=== PATIENT | female | born 1995 | race Hispanic/Latino ===

== ENCOUNTER 2024-01-22 09:42 | Emergency (ER) | payer SELFPAY ==
[2024-01-22 10:30] LABS: #Basophils 0.07 10x3/uL (0.0-0.2); #Monocytes 0.23 10x3/uL (0.0-1.1); #Neutrophils 12.94 10x3/uL (1.5-8.4); %Basophils 0.5 % (0.0-2.0); %Lymphocytes 6.9 % (18.0-47.0); %Monocytes 1.6 % (0.0-10.0); %Neutrophils 90.5 % (40.0-75.0); Hematocrit 46.3 % (34.9-44.5); Hemoglobin 15.2 g/dL (12.0-15.5); Mean Corpuscular HGB CONC 32.8 g/dL (32.0-36.0); Mean Corpuscular Hemoglobin 27.5 pg (27.0-33.0); Mean Corpuscular Volume 83.9 fL (81.6-98.3); Platelet Count 381 10x3/uL (150-450); RBC Distribution Width 13.1 % (11.5-14.5); Red Blood Cell (RBC) Count 5.52 10x6/uL (3.90-5.03); White Blood Cell (WBC) Count 14.3 10x3/uL (3.5-10.5)
[2024-01-22] MEDS ORDERED: Metoclopramide HCl 10 MG (2 mL) VIAL ONE (10:37)
[2024-01-22 10:48] LABS: ALT (SGPT) 18 U/L (8-55); AST (SGOT) 11 U/L (5-34); Albumin 4.5 g/dL (3.5-5.0); Alkaline Phosphatase 109 U/L (40-110); Anion Gap 23 mmol/L (10-20); BUN (Urea Nitrogen) 13 mg/dL (7.0-18.7); Bilirubin, Total 0.3 mg/dL (0.2-1.2); Calc. Creatinine Clearance 0 mL/min (70-130); Calcium 10.1 mg/dL (7.8-10.44); Carbon Dioxide 20 mmol/L (22-29); Chloride 101 mmol/L (98-107); Estimated GFR 94; Globulin 3.6 g/dL (2.4-3.5); Potassium 4.4 mmol/L (3.5-5.1); Protein, Total 8.1 g/dL (6.0-8.3); Sodium 140 mmol/L (136-145)
[2024-01-22 10:59] LABS: Critical Call Chemistry NUR.DG3@1057; Glucose 431 mg/dL (70-105)
[2024-01-22 11:00] LABS: BHCG - Serum Negative (NEGATIVE); Pregs Control Background? CLEAR/WHITE (CLR/WHITE); Pregs Control Bar Appear? YES (CONTROL BAR)
[2024-01-22 11:05] LABS: Lipase 41 U/L (8-78); Magnesium 2.2 mg/dL (1.6-2.6)
[2024-01-22] MEDS ORDERED: Erythromycin 250 MG in Sodium Chloride 0.9% 250 ML 250 ML IVPB SCH (11:15)
== END 2024-01-22 16:02 | disposition home or self-care (01) ==
LOC: CSHERS 09:42
DX: E86.0 Dehydration (principal); K31.84 Gastroparesis; E11.65 Type 2 diabetes mellitus with hyperglycemia; R11.2 Nausea with vomiting, unspecified
CPT/HCPCS: 36416; 80053; 82010; 83690; 83735; 84703; 85025; 96361; 96365; 96375; J1364; J2765; J7050

== ENCOUNTER 2024-01-24 09:38 | Emergency (ER) | payer SELFPAY ==
[2024-01-24] MEDS ORDERED: Ondansetron PF 4 MG/2 ML Vial ONE (09:44)
[2024-01-24] MEDS ORDERED: Metoclopramide HCl 10 MG (2 mL) VIAL ONE ×2 (10:00→12:01)
[2024-01-24 10:13] LABS: #Basophils 0.03 10x3/uL (0.0-0.2); #Eosinophils 0.02 10x3/uL (0.0-0.5); #Monocytes 0.43 10x3/uL (0.0-1.1); #Neutrophils 7.16 10x3/uL (1.5-8.4); %Basophils 0.3 % (0.0-2.0); %Eosinophils 0.2 % (0.0-6.0); %Lymphocytes 17.6 % (18.0-47.0); %Monocytes 4.6 % (0.0-10.0); %Neutrophils 76.8 % (40.0-75.0); Hematocrit 41.8 % (34.9-44.5); Hemoglobin 13.9 g/dL (12.0-15.5); Mean Corpuscular HGB CONC 33.3 g/dL (32.0-36.0); Mean Corpuscular Hemoglobin 27.5 pg (27.0-33.0); Mean Corpuscular Volume 82.6 fL (81.6-98.3); Mean Platelet Volume 9.6 fL (7.4-10.4); Platelet Count 335 10x3/uL (150-450); RBC Distribution Width 12.9 % (11.5-14.5); Red Blood Cell (RBC) Count 5.06 10x6/uL (3.90-5.03); White Blood Cell (WBC) Count 9.3 10x3/uL (3.5-10.5)
[2024-01-24 10:26] LABS: ALT (SGPT) 11 U/L (8-55); AST (SGOT) 11 U/L (5-34); Albumin 3.9 g/dL (3.5-5.0); Alkaline Phosphatase 87 U/L (40-110); Anion Gap 17 mmol/L (10-20); BUN (Urea Nitrogen) 10 mg/dL (7.0-18.7); Bilirubin, Total 0.4 mg/dL (0.2-1.2); Calc. Creatinine Clearance 0 mL/min (70-130); Calcium 9.6 mg/dL (7.8-10.44); Carbon Dioxide 22 mmol/L (22-29); Chloride 101 mmol/L (98-107); Estimated GFR 117; Globulin 3.5 g/dL (2.4-3.5); Glucose 338 mg/dL (70-105); Lipase 32 U/L (8-78); Potassium 3.7 mmol/L (3.5-5.1); Protein, Total 7.4 g/dL (6.0-8.3); Sodium 136 mmol/L (136-145)
[2024-01-24] MEDS ORDERED: Haloperidol Lactate 5 MG/ML VIAL ONE (10:39)
[2024-01-24] MEDS ORDERED: Insulin Regular, Human 100 UNIT/ML 10 ML VIAL ONE (17:39)
[2024-01-24] MEDS ORDERED: Lisinopril 5 MG TAB PO SCH (18:15)
== END 2024-01-24 19:31 | disposition home or self-care (01) ==
LOC: CSHERS 09:38
DX: E11.43 Type 2 diabetes mellitus with diabetic autonomic (poly)neuropathy (principal); S05.00XA Injury of conjunctiva and corneal abrasion without foreign body, unspecified eye, initial encounter; I10 Essential (primary) hypertension; E11.10 Type 2 diabetes mellitus with ketoacidosis without coma; X58.XXXA Exposure to other specified factors, initial encounter
CPT/HCPCS: 36416; 80053; 83690; 85025; 96361; 96374; 96375; J1630; J1815; J2405; J2765

== ENCOUNTER 2024-01-30 08:17 | Emergency (ER) | payer SELFPAY ==
[2024-01-30] MEDS ORDERED: Haloperidol Lactate 5 MG/ML VIAL ONE (08:40)
[2024-01-30] MEDS ORDERED: Ondansetron PF 4 MG/2 ML Vial ONE (08:40)
[2024-01-30] MEDS ORDERED: diphenhydrAMINE 50 MG/ML VIAL ONE (08:40)
[2024-01-30 09:14] LABS: Actual Bicarbonate (HCO3v) 24.5 mEq/L (22-28); Analyzer IN Cardio CS ER; Base Excess 0.1 mEq/L (-2 - +2); Calcium, Ionized (venous) 1.17 mmol/L (1.16-1.32); Chloride (VBG) 101 mmol/L (98-106); Hematocrit-VBG 48 % (36.0-47.0); Hemoglobin (Hb) 16.3 g/dL (11.7-15.5); Potassium (VBG) 4.74 mmol/L (3.70-5.30); Puncture Site Other Site; RapidComm Collect By LAB; Sodium 145 mmol/L (133-146); pH (venous) 7.414 (7.32-7.43)
[2024-01-30 09:16] LABS: #Basophils 0.03 10x3/uL (0.0-0.2); #Monocytes 0.22 10x3/uL (0.0-1.1); #Neutrophils 10.07 10x3/uL (1.5-8.4); %Basophils 0.3 % (0.0-2.0); %Lymphocytes 8.1 % (18.0-47.0); %Neutrophils 89.2 % (40.0-75.0); Hematocrit 45.5 % (34.9-44.5); Hemoglobin 14.8 g/dL (12.0-15.5); Mean Corpuscular HGB CONC 32.5 g/dL (32.0-36.0); Mean Corpuscular Hemoglobin 27.3 pg (27.0-33.0); Mean Corpuscular Volume 83.8 fL (81.6-98.3); Mean Platelet Volume 9.6 fL (7.4-10.4); Platelet Count 416 10x3/uL (150-450); RBC Distribution Width 13.2 % (11.5-14.5); Red Blood Cell (RBC) Count 5.43 10x6/uL (3.90-5.03); White Blood Cell (WBC) Count 11.3 10x3/uL (3.5-10.5)
[2024-01-30] MEDS ORDERED: Insulin Regular, Human 100 UNIT/ML 10 ML VIAL ONE (09:22)
[2024-01-30 09:28] LABS: ALT (SGPT) 15 U/L (8-55); AST (SGOT) 12 U/L (5-34); Albumin 4.5 g/dL (3.5-5.0); Alkaline Phosphatase 87 U/L (40-110); Anion Gap 21 mmol/L (10-20); BUN (Urea Nitrogen) 11 mg/dL (7.0-18.7); Bilirubin, Total 0.5 mg/dL (0.2-1.2); Calc. Creatinine Clearance 0 mL/min (70-130); Calcium 10.3 mg/dL (7.8-10.44); Carbon Dioxide 22 mmol/L (22-29); Chloride 101 mmol/L (98-107); Estimated GFR 102; Globulin 3.6 g/dL (2.4-3.5); Lipase 31 U/L (8-78); Magnesium 2.2 mg/dL (1.6-2.6); Potassium 4.4 mmol/L (3.5-5.1); Protein, Total 8.1 g/dL (6.0-8.3); Sodium 140 mmol/L (136-145)
[2024-01-30 09:37] LABS: Glucose 410 mg/dL (70-105)
== END 2024-01-30 10:39 | disposition home or self-care (01) ==
LOC: CSHERS 08:17
DX: E11.65 Type 2 diabetes mellitus with hyperglycemia (principal); E86.0 Dehydration; E11.10 Type 2 diabetes mellitus with ketoacidosis without coma; F17.200 Nicotine dependence, unspecified, uncomplicated; Z55.6 Problems related to health literacy
CPT/HCPCS: 36415; 36416; 80053; 82010; 82805; 83690; 83735; 85025; 96361; 96374; 96375; J1200; J1630; J1815; J2405